=== PATIENT | female | born 1950 | race Hispanic/Latino ===

== ENCOUNTER → 2021-11-08 | Outpatient (CLI) | payer MEDICARE, BC ==
[~2021-11-08] MED LIST: AEC81 PO; AMLO-257 PO; ATOR10TA69 PO; CHOL500050 PO; LEVO100T12 PO
== END | disposition home or self-care (01) ==
LOC: RAH 11:05
PROVIDERS: ATTEND Family Medicine
DX: I10 Essential (primary) hypertension (principal); M47.814 Spondylosis without myelopathy or radiculopathy, thoracic region
CPT/HCPCS: 71046

== ENCOUNTER → 2022-12-12 | Outpatient (CLI) | payer MEDICARE | END | disposition home or self-care (01) | LOC: RAH 11:53 | PROVIDERS: ATTEND Internal Medicine Cardiovascular Disease | DX: R06.89 Other abnormalities of breathing (principal); R05.9 Cough, unspecified | CPT/HCPCS: 71046 ==

== ENCOUNTER → 2023-02-05 | Outpatient (CLI) | payer MEDICARE | END | disposition home or self-care (01) | LOC: RAH 12:59 | PROVIDERS: ATTEND Internal Medicine Cardiovascular Disease | DX: R06.89 Other abnormalities of breathing (principal) | CPT/HCPCS: 71250 ==

== ENCOUNTER 2023-06-18 06:22 | Day surgery (SDC) | payer MEDICARE ==
[~2023-06-18] VITALS: Ht 147.3 cm; Wt 60.8 kg
[2023-06-18] VITALS (12 sets, daily range): BP systolic 138–179; BP diastolic 64–76; PULSE 62–70; RESP 13–16
[~2023-06-18 06:22] MED LIST changes: +0.9%NACL 1000ML 1,000 ML IV ONE; +CALC-960 PO; -CHOL500050 PO; +DOCU100C33 PO; +LABE100T7 PO; +SPIR25TA PO
[2023-06-18] MEDS ORDERED: PROPOFOL 10 MG/ML 20ML VIAL IV ONE (10:53)
== END 2023-06-18 13:00 | disposition home or self-care (01) ==
LOC: DAH 06:22 → ENDO 06:22
PROVIDERS: ATTEND Internal Medicine Gastroenterology
DX: Z12.11 Encounter for screening for malignant neoplasm of colon (principal); K57.30 Diverticulosis of large intestine without perforation or abscess without bleeding; I10 Essential (primary) hypertension; E03.9 Hypothyroidism, unspecified; M81.0 Age-related osteoporosis without current pathological fracture; E78.5 Hyperlipidemia, unspecified; Z86.010 Personal history of colon polyps; Z88.2 Allergy status to sulfonamides; Z90.710 Acquired absence of both cervix and uterus; Z82.49 Family history of ischemic heart disease and other diseases of the circulatory system
CPT/HCPCS: J7030; J2704; A4620; G0105; A4215 ×2; A4223; A7002; A4222; A4221; A4663; A4606; 45378; J3490